=== PATIENT | female | born 1980 | race Caucasian/White ===

== ENCOUNTER 2017-08-01 10:25 | Day surgery (SDC) | payer OTHER ==
[2017-07-28 09:49] VITALS: BMI 26.6
[2017-08-01] MEDS ORDERED: PROPOFOL 20 ML ONE ×2 (11:31)
[2017-08-01 12:40] VITALS: TEMP 97.8
[2017-08-01 13:06] VITALS: BP 91/54; PULSE 72
--- NOTE | 2017-08-03 16:55 | PATH ---
Surgical Pathology Report Patient Name: LISSETTE ABURTO [facility]. Rec. #: [id number] /Age/Gender: 1980 (Age: 37) / F Account: [id number] Location: Taken: 08/01/2017 Received: 08/01/2017 Reported: 08/03/2017 Physicians: Milo Posey M.D. Specimen(s) Received A: BX DUODENUM B: BX ANTRUM C: DISTAL ESOPHAGUS Clinical History GERD Postoperative diagnosis: Rule out celiac disease, GERD, gastritis, distal esophagitis Final Diagnosis A. DUODENUM, BIOPSY: DUODENAL MUCOSA WITH MILD CHRONIC DUODENITIS. B. ANTRUM, BIOPSY: GASTRIC MUCOSA WITH MILD CHRONIC GASTRITIS. IMMUNOSTAIN IS NEGATIVE FOR H. PYLORI ORGANISMS. C. DISTAL ESOPHAGUS, BIOPSY: ESOPHAGEAL(SQUAMOUS) MUCOSA SHOWING BASAL CELL HYPERPLASIA, ELONGATED PAPILLAE, CHRONIC INFLAMMATORY CELL AND FEW EOSINOPHILIC INFILTRATE, CONSISTENT WITH REFLUX ESOPHAGITIS. Electronically Signed Jovita Freitas M.D. Gross Description A. Received in formalin, labeled "duodenum" are 2 rivera, irregular portions of soft tissue measuring 0.2 and 0.3 cm. in greatest dimension. The specimens are submitted in toto in one cassette. B. Received in formalin, labeled "antrum" are 2 rivera, irregular portions of soft tissue measuring 0.2 and 0.3 cm. in greatest dimension. The specimens are submitted in toto in one cassette. C. Received in formalin, labeled "distal esophagus" are 2 rivera, irregular portions of soft tissue measuring 0.2 and 0.2 date cm. in greatest dimension. The specimens are submitted in toto in one cassette. GRANT/08/01/2017 whit/08/01/2017
== END 2017-08-01 13:35 | disposition home or self-care (01) ==
LOC: FASU-ENDO 10:25
PROVIDERS: ATTEND Internal Medicine Gastroenterology
PROC: 0DB48ZX Excision of Esophagogastric Junction, Via Natural or Artificial Opening Endoscopic, Diagnostic (ICD-10-PCS; 2017-08-01)
PROC: 0DB98ZX Excision of Duodenum, Via Natural or Artificial Opening Endoscopic, Diagnostic (ICD-10-PCS; principal; 2017-08-01 12:13)
PROC: 0DB68ZX Excision of Stomach, Via Natural or Artificial Opening Endoscopic, Diagnostic (ICD-10-PCS; 2017-08-01 12:13)
DX: R12 Heartburn (principal); K20.9 Esophagitis, unspecified; K44.9 Diaphragmatic hernia without obstruction or gangrene; K29.80 Duodenitis without bleeding; K29.50 Unspecified chronic gastritis without bleeding
CPT/HCPCS: 84703; 88305-TC; 88342-TC